=== PATIENT | female | born 1985 | race Caucasian/White ===

== ENCOUNTER 2018-04-01 07:32 | Emergency (ER) | payer OTHER ==
[~2018-04-01] VITALS: Ht 167.6 cm; Wt 95.2 kg
[2018-04-01] MEDS ORDERED: GABA300 PO (07:43)
== END 2018-04-01 08:40 | disposition home or self-care (01) ==
LOC: ER 07:32
DX: S43.102A Unspecified dislocation of left acromioclavicular joint, initial encounter (principal); W01.0XXA Fall on same level from slipping, tripping and stumbling without subsequent striking against object, initial encounter; Z88.8 Allergy status to other drugs, medicaments and biological substances; Z88.5 Allergy status to narcotic agent; Z79.899 Other long term (current) drug therapy; F17.210 Nicotine dependence, cigarettes, uncomplicated
CPT/HCPCS: 73030; 99283-25

== ENCOUNTER 2019-02-01 13:21 | Emergency (ER) | payer OTHER ==
[~2019-02-01] VITALS: Ht 167.6 cm; Wt 113.4 kg
[~2019-02-01 13:21] MED LIST: GABA300 PO
== END 2019-02-01 14:34 | disposition home or self-care (01) ==
LOC: ER 13:21
DX: M53.3 Sacrococcygeal disorders, not elsewhere classified (principal); Z88.5 Allergy status to narcotic agent; Z88.8 Allergy status to other drugs, medicaments and biological substances; Z88.6 Allergy status to analgesic agent; Z79.899 Other long term (current) drug therapy; F17.210 Nicotine dependence, cigarettes, uncomplicated
CPT/HCPCS: 72220; 99283-25

== ENCOUNTER 2020-11-28 19:38 | Emergency (ER) | payer OTHER ==
[~2020-11-28] VITALS: Ht 167.6 cm; Wt 87.1 kg
== END 2020-11-28 23:08 | disposition home or self-care (01) ==
LOC: ER 19:38
DX: J04.0 Acute laryngitis (principal); K21.9 Gastro-esophageal reflux disease without esophagitis; F17.210 Nicotine dependence, cigarettes, uncomplicated; Z88.5 Allergy status to narcotic agent; Z88.6 Allergy status to analgesic agent; Z88.8 Allergy status to other drugs, medicaments and biological substances
CPT/HCPCS: 36415; 70491; 99284-25; Q9967

== ENCOUNTER → 2021-12-30 | Outpatient (CLI) | payer OTHER ==
[2022-01-01 04:12] LABS: CHLAMYDIA TRACHOMATIS, NAA Negative (Negative)
== END | disposition home or self-care (01) ==
LOC: LAB 16:48 → LAB SHORT 16:48
PROVIDERS: Obstetrics & Gynecology
DX: Z11.3 Encounter for screening for infections with a predominantly sexual mode of transmission (principal)
CPT/HCPCS: 87491; 87591

== ENCOUNTER 2022-08-21 14:38 | Emergency (ER) | payer OTHER ==
[~2022-08-21] VITALS: Ht 167.6 cm; Wt 108.9 kg
== END 2022-08-21 15:30 | disposition home or self-care (01) ==
LOC: ER 14:38
DX: T23.231A Burn of second degree of multiple right fingers (nail), not including thumb, initial encounter (principal); T31.0 Burns involving less than 10% of body surface; F17.210 Nicotine dependence, cigarettes, uncomplicated; X15.2XXA Contact with hotplate, initial encounter; Z88.5 Allergy status to narcotic agent; Z88.8 Allergy status to other drugs, medicaments and biological substances
CPT/HCPCS: 99283

== ENCOUNTER 2023-12-15 09:13 | Day surgery (SDC) | payer OTHER ==
[~2023-12-15] VITALS: Ht 167.6 cm; Wt 100.6 kg
[~2023-12-15 09:13] MED LIST changes: +Bupivacaine 0.5% HCl 5 MG/ML 30MLVIAL ONE; +Dexamethasone Sod Phos 10 MG/ML 1ML VIAL ONE; +EPINEPhrine HCl 1 MG/ML 1ML Amp ONE; +FAMO20 PO; +GABA800 PO; +Lactated Ringer's 1,000 ML IV ONE; +Lidocaine HCl 2% 10 ML SDA ONE; +MOBIC15 MG PO; +NEXIUM PO
[2023-12-15] MEDS ORDERED: Lactated Ringer's 1,000 ML IV ONE (09:59)
[2023-12-15] MEDS ORDERED: CeFAZolin Sodium 2,000 MG VIAL ONE (10:06)
[2023-12-15] MEDS ORDERED: NS 50 ML IV ONE (10:07)
[2023-12-15] MEDS ORDERED: Midazolam HCl 1MG / ML 2ML Vial ONE (10:42)
[2023-12-15] MEDS ORDERED: propofoL 20 ML IV ONE (11:05)
[2023-12-15] MEDS ORDERED: FentaNYL Citrate 50 MCG/ML 2 ML Injection ONE (11:15)
[2023-12-15] MEDS ORDERED: Glycopyrrolate 0.2 MG/ML 5ML VIAL ONE (11:46)
[2023-12-15 12:49] VITALS: BP 144/92
== END 2023-12-15 12:52 | disposition home or self-care (01) ==
LOC: ORSCSDS 09:13
PROVIDERS: Orthopaedic Surgery
PROC: 01B40ZZ Excision of Ulnar Nerve, Open Approach (ICD-10-PCS; principal; 2023-12-15 10:15)
PROC: 0PTM0ZZ Resection of Right Carpal, Open Approach (ICD-10-PCS; principal; 2023-12-15 10:15)
DX: S62.011 Displaced fracture of distal pole of navicular [scaphoid] bone of right wrist (principal); M19.131 Post-traumatic osteoarthritis, right wrist; Z87.891 Personal history of nicotine dependence; Z79.899 Other long term (current) drug therapy; E66.9 Obesity, unspecified; Z68.36 Body mass index [BMI] 36.0-36.9, adult
CPT/HCPCS: J0171; J0690; J1100; J2001; J2250; J2704; J3010; J7120

== ENCOUNTER → 2025-05-21 | Outpatient (CLI) | payer OTHER ==
[~2025-05-21] MED LIST changes: -Bupivacaine 0.5% HCl 5 MG/ML 30MLVIAL ONE; -Dexamethasone Sod Phos 10 MG/ML 1ML VIAL ONE; -EPINEPhrine HCl 1 MG/ML 1ML Amp ONE; -Lactated Ringer's 1,000 ML IV ONE; -Lidocaine HCl 2% 10 ML SDA ONE
[2025-05-21 09:42] LABS: BASOPHILS ABSOLUTE AUTO 0.04 K/mm3 (0.00-0.23); BASOPHILS PERCENT AUTO 1 % (0-2); EOSINOPHILS ABSOLUTE AUTO 0.03 K/mm3 (0.00-0.68); EOSINOPHILS PERCENT AUTO 0 % (0-6); Hematocrit 37.6 % (33.0-51.0); Hemoglobin 13.7 g/dL (11.5-16.0); IMMATURE GRAN ABSOLUTE AUTO 0.01 K/mm3 (0.00-0.10); IMMATURE GRAN PERCENT AUTO 0 % (0-1); LYMPHOCYTES ABSOLUTE AUTO 1.08 K/mm3 (0.84-5.20); LYMPHOCYTES PERCENT AUTO 15 % (21-46); MONOCYTES ABSOLUTE AUTO 0.27 K/mm3 (0.16-1.47); MONOCYTES PERCENT AUTO 4 % (4-13); Mean Corpuscular HGB Conc 36.4 g/dL (31.5-36.5); Mean Corpuscular Volume 88 fL (80-100); NEUTROPHILS ABSOLUTE AUTO 5.89 K/mm3 (1.96-9.15); NEUTROPHILS PERCENT AUTO 81 % (41-73); NRBC ABSOLUTE 0.00 K/mm3 (0.00-0.02); NRBC Auto 0.0 /100 WBC (0.0-0.2); Platelet Count 280 K/mm3 (150-400); RDW Coefficient Variation 12.5 % (11.7-14.2); RDW Standard Deviation 40.3 fL (35.1-46.3)
[2025-05-21 09:52] LABS: Alanine Aminotransfer (ALT/SGP 29.0 U/L (12-78); Albumin, Blood 4.1 g/dL (3.4-5.0); Albumin/Globulin Ratio 1.1 (0.8-1.8); Anion Gap 15.0 mmol/L (3-11); Aspartate Aminotrans (AST/SGOT 16.0 U/L (12-37); Bilirubin, Total 0.8 mg/dL (0.1-1.0); Blood Urea Nitrogen 11.0 mg/dL (8-24); CO2, Blood 25.0 mmol/L (21-32); Calcium, Blood 9.0 mg/dL (8.5-10.1); Chloride, Blood 108.0 mmol/L (98-108); Creatinine, Blood 0.75 mg/dL (0.40-1.00); Globulin, Blood 3.6 g/dL (2.2-4.0); Glucose, Blood 109.0 mg/dL (70-99); Potassium, Blood 4.0 mmol/L (3.5-5.5); Sodium, Blood 144.0 mmol/L (136-145); Total Protein, Blood 7.7 g/dL (6.4-8.2)
== END | disposition home or self-care (01) ==
LOC: LAB SHORT 09:37 → LAB 09:37
PROVIDERS: Physician Assistant Medical
DX: R10.9 Unspecified abdominal pain (principal)
CPT/HCPCS: 80053; 83690; 85025